=== PATIENT | female | born 1955 | race Caucasian/White ===

== ENCOUNTER → 2016-03-21 | Outpatient (CLI) | payer OTHER ==
[~2016-03-21] MED LIST: ASPI-983 PO; ATOR20TA49 PO; CETI10CA PO; FURO20TA4 PO; LISI-552 PO; LISI1TAB8 PO; METO-351 PO; POTA20TA8 PO
--- NOTE | 2016-03-23 07:47 | ECHOCARDIOGRAPHY REPORT ---
PROCEDURE PHYSICIAN: ROSEMARY GAYTAN DATE OF PROCEDURE: 03/21/2016 TWO DIMENSIONAL ECHOCARDIOGRAM REPORT PRIMARY PHYSICIAN: OTHER PHYSICIAN: REFERRING PHYSICIAN: ORDERING PHYSICIAN: ATTENDING PHYSICIAN: Dr. Reed Gaytan INDICATION FOR THE PROCEDURE: 1. Dyspnea on exertion. 2. Hypertension. MEASUREMENTS DERIVED VALUES LV DIAMETER (LAX) NORMALS NORMALS Diastolic (3.6-5.2) Eject. Fract. (60%+/-6%) Systolic (2.3-3.9) Diastolic Vol. % Shortening (0.22-0.42) Systolic Vol. Aortic Root IVS THICKNESS Diastolic (0.6-1.1) LVPW THICKNESS Diastolic (0.6-1.1) LA DIAMETER Systolic (2.1-3.7) FINDINGS: 1. Sinus rhythm. 2. Left atrial dimensions are normal. 3. Aortic root dimensions are normal. 4. Left ventricular systolic function is preserved. Left ventricular ejection fraction is 60 to 65%. No LVH is present. 5. There are no wall motion abnormalities. 6. Right heart dimensions and function is normal. 7. There is no evidence of pericardial effusion. 8. There is mild diastolic dysfunction. 9. IVC is normal with a diameter of 1.3 cm. VALVULAR STRUCTURE OF THE HEART: 1. Mild tricuspid regurgitation with mild mitral regurgitation. 2. The aortic valve is difficult to visualize in the parasternal short axis. However, there is no significant stenosis or regurgitation. RVSP is 6.79 mmHg. 3. The pulmonic valve is not well visualized. CONCLUSION: 1. LV and RV size and function is normal. 2. LV EF is 65%. 3. There is no significant valvular heart disease. 4. Normal PA pressure. Job ID: [id number] Dictated Date: 03/22/2016 14:09:16 [employer] Date: 03/23/2016 07:43:53 / tbowen
== END ==
LOC: CARD 14:44
PROVIDERS: ATTEND Internal Medicine Interventional Cardiology
DX: R06.09 Other forms of dyspnea (principal); I10 Essential (primary) hypertension
CPT/HCPCS: 93306

== ENCOUNTER → 2016-06-27 | Outpatient (CLI) | payer OTHER ==
--- NOTE | 2016-06-29 06:38 | ECHOCARDIOGRAPHY REPORT ---
DATE OF SERVICE: 06/27/2016 2D ECHOCARDIOGRAM DATE: 06/27/2016. ORDERING PHYSICIAN: Dr. Reed Gaytan. DIAGNOSIS: Dyspnea on exertion, hypertension. FINDINGS: 1. Sinus rhythm. 2. Left atrial dimensions are normal. Left atrial diameter is 3.7 cm. 3. Aortic root dimensions are normal. 4. Left ventricular systolic function is normal. Left ventricular ejection fraction is 65%. Mild diastolic and mild concentric LVH is present. Diastolic interventricular septal diameter is 1.1 cm. 5. There are no wall motion abnormalities. 6. Right heart dimensions are normal. Right ventricular systolic function is preserved. 7. There is no evidence of pericardial effusion. 8. Mild diastolic dysfunction is noted. 9. IVC diameter is 1.3 cm, and there is more than 50% collapse which may suggest under filling. VALVULAR STRUCTURE OF THE HEART: Mitral valve apparatus is normal. There is trace mitral regurgitation. There is trace tricuspid regurgitation. RVSP is 25 mmHg. There is mild aortic sclerosis noted with no evidence of stenosis or regurgitation. The pulmonic valve is within normal limits. CONCLUSION: 1. LV and RV size and function is normal. 2. LVEF is 65%. 3. There is no significant valvular heart disease. 4. Normal PA pressure. 5. IVC diameter is 1.3 cm with more than 50% collapse suggesting under filling. Job ID: [id number] DocumentID: [id number] Dictated Date: 06/28/2016 09:37:52 Senior Internal Auditor Date: 06/28/2016 15:26:48 Dictated By: ROSEMARY GAYTAN MD
== END ==
LOC: CARD 14:47
PROVIDERS: ATTEND Internal Medicine Interventional Cardiology
DX: I42.9 Cardiomyopathy, unspecified (principal); I10 Essential (primary) hypertension; R93.1 Abnormal findings on diagnostic imaging of heart and coronary circulation
CPT/HCPCS: 93306

== ENCOUNTER 2017-03-08 23:59 | Observation (INO) | payer BC ==
[~2017-03-08] VITALS: Ht 156.2 cm; Wt 80.8 kg
[2017-03-09 01:22] LABS: BASOPHILS # (AUTO) 0.1 10^3/uL (0.0-0.1); BASOPHILS % (AUTO) 0 % (0-10); EOSINOPHILS # (AUTO) 0.1 10^3/uL (0.0-0.3); EOSINOPHILS % (AUTO) 1 % (0-10); HEMATOCRIT 37 % (35-52); LYMPHOCYTES # (AUTO) 3.8 X 10^3 (1.0-4.0); LYMPHOCYTES % (AUTO) 24 % (12-44); MEAN CORPUSCULAR HEMOGLOBIN 28 PG (25-34); MEAN CORPUSCULAR HGB CONC 36 G/DL (32-36); MEAN CORPUSCULAR VOLUME 78 FL (80-99); MEAN PLATELET VOLUME 10.9 FL (7.4-10.4); MONOCYTES % (AUTO) 6 % (0-12); NEUTROPHILS # (AUTO) 11.1 X 10^3 (1.8-7.8); NEUTROPHILS % (AUTO) 69 % (42-75); PLATELET COUNT 308 10^3/uL (130-400); RED CELL DISTRIBUTION WIDTH 14.7 % (10.0-14.5); WHITE BLOOD COUNT 16.1 10^3/uL (4.3-11.0)
--- OUTSIDE RECORDS SUMMARY | 2017-03-09 01:27 | XMS REPORT | Continuity of Care Document ---
Author Author [facility] Address Unknown Phone Unavailable Allergies Active Description Code Type Severity Reaction Onset Reported/Identified Relationship to Patient Clinical Status Yes NKANo Known Allergies NKA Miscellaneous Allergy Unknown N/A 05/13/2005 Medications There is no data. 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 EXAM, ROUTINE 03/30/2013 JUAN CASILLAS DO V73.81 HPV SCREENING 03/30/2013 JUAN CASILLAS DO V76.10 BREAST CANCER SCREENING 03/30/2013 JUAN CASILLAS DO V76.2 CERVICAL CANCER SCREENING (PAP SMEAR) 03/30/2013 JUAN CASILLAS DO V76.51 COLON CANCER SCREENING 03/30/2013 NEAL BELLO APRN V65.42 COUNSELING - SMOKING CESSATION 03/30/2013 NEAL BELLO APRN V65.49 OTHER SPECIFIED COUNSELING 03/30/2013 NEAL BELLO APRN V72.31 PARACHUTE/COMBATANT DIVER OFFICER EXAM, ROUTINE 03/30/2013 NEAL BELLO APRN V73.81 HPV SCREENING 03/30/2013 NEAL BELLO APRN V76.10 BREAST CANCER SCREENING 03/30/2013 NEAL BELLO APRN V76.2 CERVICAL CANCER SCREENING (PAP SMEAR) 03/30/2013 NEAL BELLO APRN V76.51 COLON CANCER SCREENING 04/15/2015 MADELINE DIAZ DOTT D Ot Z01.818 04/15/2015 MORENCI MELE METCALF Ot Z12.11 04/19/2015 MORENCI MELE METCALF Ot Z12.11 ENCOUNTER FOR SCREENING FOR MALIGNANT NE 01/03/2016 Geovany LABOY MD Ot I10 ESSENTIAL (PRIMARY) HYPERTENSION 01/03/2016 Geovany LABOY MD Ot R06.09 OTHER FORMS OF DYSPNEA 01/06/2016 Geovany LABOY MD Ot I10 ESSENTIAL (PRIMARY) HYPERTENSION 01/06/2016 Geovany LABOY MD Ot R06.09 OTHER FORMS OF DYSPNEA 01/09/2016 Geovany LABOY MD, Ot I10 ESSENTIAL (PRIMARY) HYPERTENSION 01/09/2016 Geovany LABOY MD Ot R06.02 SHORTNESS OF BREATH 01/09/2016 Geovany LABOY MD Ot R06.09 OTHER FORMS OF DYSPNEA 01/09/2016 Geovany LABOY MD Ot R60.9 EDEMA, UNSPECIFIED 01/10/2016 Geovany LABOY MD Ot I25.10 ATHSCL HEART DISEASE OF [place] CORONARY 01/10/2016 Geovany LABOY MD Ot I50.21 ACUTE SYSTOLIC (CONGESTIVE) HEART FAILUR 01/10/2016 Geovany LABOY MD Ot Z72.0 TOBACCO USE 01/10/2016 Geovany LABOY MD Ot Z79.899 OTHER ASSISTED (CURRENT) DRUG THERAPY 01/17/2016 Geovany LABOY MD Ot I10 ESSENTIAL (PRIMARY) HYPERTENSION 01/17/2016 Geovany LABOY MD Ot R06.09 OTHER FORMS OF DYSPNEA 01/23/2016 Geovany LABOY MD Ot I10 ESSENTIAL (PRIMARY) HYPERTENSION 01/23/2016 Geovany LABOY MD Ot R06.02 SHORTNESS OF BREATH 01/23/2016 Geovany LABOY MD Ot R06.09 OTHER FORMS OF DYSPNEA 01/23/2016 Geovany LABOY MD Ot R60.9 EDEMA, UNSPECIFIED 02/09/2016 Geovany LABOY MD Ot I25.10 ATHSCL HEART DISEASE OF [place] CORONARY 02/09/2016 Geovany LABOY MD Ot I50.21 ACUTE SYSTOLIC (CONGESTIVE) HEART FAILUR 02/09/2016 Geovany LABOY MD Ot Z72.0 TOBACCO USE 02/09/2016 Geovany LABOY MD Ot Z79.899 OTHER ASSISTED (CURRENT) DRUG THERAPY 03/22/2016 Geovany LABOY MD Ot I10 ESSENTIAL (PRIMARY) HYPERTENSION 03/22/2016 Geovany LABOY MD Ot R06.09 OTHER FORMS OF DYSPNEA 04/03/2016 Geovany LABOY MD, Ot I10 ESSENTIAL (PRIMARY) HYPERTENSION 04/03/2016 Geovany LABOY MD Ot R06.09 OTHER FORMS OF DYSPNEA 06/25/2016 MAURIZIO MADRID APRN Ot V76.12 OTH SCREEN MAMMO-MALIGN NEOPLASM OF [place] 06/25/2016 Ot Z12.31 ENCNTR SCREEN MAMMOGRAM FOR MALIGNANT NE 06/25/2016 MELE DIAZ DO Ot Z01.818 ENCOUNTER FOR OTHER PREPROCEDURAL EXAMIN 06/25/2016 MELE DIAZ DO Ot Z12.11 ENCOUNTER FOR SCREENING FOR MALIGNANT NE 06/25/2016 Geovany LABOY MD Ot I10 ESSENTIAL (PRIMARY) HYPERTENSION 06/25/2016 Geovany LABOY MD Ot R06.09 OTHER FORMS OF DYSPNEA 06/25/2016 Geovany LABOY MD Ot I10 ESSENTIAL (PRIMARY) HYPERTENSION 06/25/2016 Geovany LABOY MD Ot R06.02 SHORTNESS OF BREATH 06/25/2016 Geovany LABOY MD Ot R06.09 OTHER FORMS OF DYSPNEA 06/25/2016 Geovany LABOY MD Ot R60.9 EDEMA, UNSPECIFIED 06/25/2016 Geovany LABOY MD Ot I10 ESSENTIAL (PRIMARY) HYPERTENSION 06/25/2016 Geovany LABOY MD Ot R06.09 OTHER FORMS OF DYSPNEA 07/10/2016 Geovany LABOY MD Ot I10 ESSENTIAL (PRIMARY) HYPERTENSION 07/10/2016 BENOIT WORTHY, Geovany OGDEN Ot I42.9 CARDIOMYOPATHY, UNSPECIFIED 07/10/2016 BENOIT WORTHY, Geovany OGDEN Ot R93.1 ABNORMAL FINDINGS ON DX IMAGING OF HEART Procedures Code [place] [address] ROUTINE VENIPUNCTURE 01/23/2012 77006 TSH 01/23/2012 58001 CBC 01/23/2012 59598 LIPID PANEL 01/23/2012 16964 CMP 01/23/2012 4508741 GFR CALC (RESULT ONLY) 01/23/2012 49330 ROUTINE VENIPUNCTURE 03/30/2013 86962 HEMOCCULT 03/30/2013 12910 MAMMOGRAM, SCREENING 03/30/2013 21490 TSH 03/30/2013 78808 PAP SMEAR 03/30/2013 Q0091 PAP SMEAR OBTAIN SMEAR 03/30/2013 62403 CBC 03/30/2013 8211421 GFR CALC (RESULT ONLY) 03/30/2013 37892 CMP 03/30/2013 55590 LIPID PANEL 03/30/2013 Results Test Result Range Automated blood complete blood count (hemogram) panel - 01/10/16 07:39 Blood leukocytes automated count (number/volume) 10.2 10*3/uL 4.3-11.0 Blood erythrocytes automated count (number/volume) 5.44 10*6/uL 4.35-5.85 Venous blood hemoglobin measurement (mass/volume) 14.7 g/dL 11.5-16.0 Blood hematocrit (volume fraction) 45 % 35-52 Automated erythrocyte mean corpuscular volume 82 [foz_us] 80-99 Automated erythrocyte mean corpuscular hemoglobin (mass per erythrocyte) 27 pg 25-34 Automated erythrocyte mean corpuscular hemoglobin concentration measurement ( mass/volume) 33 g/dL 32-36 Automated erythrocyte distribution width ratio 14.9 % 10.0-14.5 Automated blood platelet count (count/volume) 367 10*3/uL 130-400 Automated blood platelet mean volume measurement 10.7 [foz_us] 7.4-10.4 PT panel in platelet poor plasma by coagulation assay - 01/10/16 07:39 Prothrombin time (PT) in platelet poor plasma by coagulation assay 12.2 s 12.2-14.7 INR in platelet poor plasma or blood by coagulation assay 0.9 0.8-1.4 Comprehensive metabolic panel - 01/10/16 07:39 Serum or plasma sodium measurement (moles/volume) 136 mmol/L 135-145 Serum or plasma potassium measurement (moles/volume) 4.9 mmol/L 3.6-5.0 Serum or plasma chloride measurement (moles/volume) 104 mmol/L 98-107 Carbon dioxide 20 mmol/L 21-32 Serum or plasma anion gap determination (moles/volume) 12 mmol/L 5-14 Serum or plasma urea nitrogen measurement (mass/volume) 23 mg/dL 7-18 Serum or plasma creatinine measurement (mass/volume) 1.31 mg/dL 0.60-1.30 Serum or plasma urea nitrogen/creatinine mass ratio 18 NRG Serum or plasma creatinine measurement with calculation of estimated glomerular filtration rate 41 NRG Serum or plasma glucose measurement (mass/volume) 99 mg/dL 70-105 Serum or plasma calcium measurement (mass/volume) 9.7 mg/dL 8.5-10.1 Serum or plasma total bilirubin measurement (mass/volume) 0.4 mg/dL 0.1-1.0 Serum or plasma alkaline phosphatase measurement (enzymatic activity/volume) 114 U/L 40-136 Serum or plasma aspartate aminotransferase measurement (enzymatic activity/ volume) 17 U/L 5-34 Serum or plasma alanine aminotransferase measurement (enzymatic activity/volume ) 20 U/L 0-55 Serum or plasma protein measurement (mass/volume) 7.9 g/dL 6.4-8.2 Serum or plasma albumin measurement (mass/volume) 4.4 g/dL 3.2-4.5 Methicillin resistant Staphylococcus aureus (MRSA) screening culture - 07:39 Methicillin resistant Staphylococcus aureus (MRSA) screening culture NEG NRG Encounters ACCT No. Visit Date/Time Discharge Status Pt. Type Provider Facility Loc./Unit Complaint [id number] 02/17/2014 15:19:00 02/17/2014 23:59:59 CLS Outpatient NEAL BELLO APRN [id number] 03/30/2013 10:38:00 03/30/2013 23:59:59 CLS Outpatient JUAN CASILLAS DO [id number] 03/18/2013 15:45:00 03/18/2013 23:59:59 CLS Outpatient NEAL BELLO APRN [id number] 01/23/2012 08:22:00 01/23/2012 23:59:59 CLS Outpatient JUAN CASILLAS DO [id number] 01/22/2012 14:39:00 01/22/2012 23:59:59 CLS Outpatient ACE MAYNARDNEAL [id number] 01/04/2017 10:50:00 01/04/2017 23:59:59 CLS Preadmit Geovany LABOY MD [facility] CARD I42.9 CARDIOMYOPATHY [id number] 06/27/2016 14:47:00 06/27/2016 23:59:59 CLS Outpatient Geovany LABOY MD [facility] CARD I42.9,R93.1 [id number] 03/21/2016 14:44:00 03/21/2016 23:59:59 CLS Outpatient Geovany LABOY MD [facility] CARD GONSALVES,ESSENTIAL HYPERTENSION [id number] 01/10/2016 07:05:00 01/10/2016 15:00:00 DIS Outpatient Geovany LABOY MD [facility] CATH ABNORMAL ECHO,SOB,HTN, TOBACCO USE [id number] 01/06/2016 07:36:00 01/06/2016 23:59:59 CLS Outpatient Geovany LABOY MD [facility] LAB GONSALVES,EDEMA,HTN,SOB [id number] 01/02/2016 13:18:00 01/02/2016 23:59:59 CLS Outpatient Geovany LABOY MD [facility] CARD GONSALVES,ESSENTIAL HYPERTENTION, ELEVATED BNP [id number] 04/19/2015 07:23:00 04/19/2015 09:40:00 DIS Outpatient MELE DIAZ DO [facility] SDC SCREENING [id number] 04/15/2015 13:00:00 04/15/2015 23:59:59 CLS Outpatient MELE DIAZ DO [facility] PREOP SCREENING [id number] 04/10/2013 15:05:00 04/10/2013 23:59:59 CLS Outpatient MAURIZIO MADRID APRN [facility] RAD SCREENING [id number] 03/24/2015 13:09:00 Document Registration
[2017-03-09] MEDS ORDERED: NITROGLYCERIN 2% OINT 1 GM UNIT DOSE PACKET TOP ONE (01:30)
[2017-03-09 01:35] LABS: PROTHROMBIN TIME PATIENT 13.1 SEC (12.2-14.7)
[2017-03-09 01:39] LABS: ANISOCYTOSIS SLIGHT; BAND NEUTROPHILS 0 %; BASOPHILS % (MANUAL) 0 %; EOSINOPHILS % (MANUAL) 2 %; LYMPHOCYTES % (MANUAL) 22 %; MONOCYTES % (MANUAL) 5 %; NEUTROPHILS % (MANUAL) 66 %; REACTIVE LYMPHOCYTES 5 %
[2017-03-09 01:43] LABS: ALANINE AMINOTRANSFERASE 17 U/L (0-55); ALBUMIN 3.9 GM/DL (3.2-4.5); ALKALINE PHOSPHATASE 133 U/L (40-136); BILIRUBIN,TOTAL 0.5 MG/DL (0.1-1.0); BUN/CREATININE RATIO 13; CALCIUM 9.5 MG/DL (8.5-10.1); CARBON DIOXIDE 26 MMOL/L (21-32); CHLORIDE 104 MMOL/L (98-107); CREATININE SERUM 0.91 MG/DL (0.60-1.30); GFR ESTIMATED > 60; GLUCOSE 133 MG/DL (70-105); MAGNESIUM 1.8 MG/DL (1.8-2.4); POTASSIUM 3.3 MMOL/L (3.6-5.0); SODIUM 144 MMOL/L (135-145); TOTAL PROTEIN 7.5 GM/DL (6.4-8.2)
[2017-03-09] MEDS ORDERED: FUROSEMIDE 40 MG/4 ML INJ (LASIX) IVP ONE (02:15)
[2017-03-09] MEDS ORDERED: meTOproloL SUCCINATE 50 MG (TOPROL XL) TAB PO SCH (02:15)
[2017-03-09] MEDS ORDERED: ONDANSETRON 4 MG/2 ML (SDV) Z0FRAN IVP ONE (02:45)
--- OUTSIDE RECORDS SUMMARY | 2017-03-09 02:46 | XMS REPORT | Continuity of Care Document ---
Author Author [facility] [place] [facility] Address Unknown Phone Unavailable Allergies Active Description [...] SPECIFIED COUNSELING 03/30/2013 JUAN CASILLAS DO V72.31 BALANCER EXAM, ROUTINE 03/30/2013 JUAN CASILLAS DO V73.81 HPV SCREENING 03/30/2013 JUAN CASILLAS DO V76.10 BREAST CANCER SCREENING 03/30/2013 JUAN CASILLAS DO V76.2 CERVICAL CANCER SCREENING (PAP SMEAR) 03/30/2013 JUAN CASILLAS DO V76.51 COLON CANCER SCREENING 03/30/2013 NEAL BELLO APRN V65.42 COUNSELING - SMOKING CESSATION 03/30/2013 NEAL BELLO APRN V65.49 OTHER SPECIFIED COUNSELING 03/30/2013 NEAL BELLO APRN V72.31 BALANCER EXAM, ROUTINE 03/30/2013 NEAL BELLO APRN V73.81 HPV SCREENING 03/30/2013 NEAL BELLO APRN V76.10 BREAST CANCER SCREENING 03/30/2013 NEAL BELLO APRN V76.2 CERVICAL CANCER SCREENING (PAP SMEAR) 03/30/2013 NEAL BELLO APRN V76.51 COLON CANCER SCREENING 04/15/2015 MADELINE DIAZ DOTT D Ot Z01.818 04/15/2015 ALEXAND[place] MELE METCALF Ot Z12.11 04/19/2015 ALEXANDRI[place] MELE METCALF Ot Z12.11 ENCOUNTER FOR SCREENING [...] MD Ot I25.10 ATHSCL HEART DISEASE OF [place] CORONARY 01/10/2016 Geovany LABOY MD Ot I50.21 ACUTE SYSTOLIC (CONGESTIVE) HEART FAILUR 01/10/2016 Geovany LABOY MD Ot Z72.0 TOBACCO USE 01/10/2016 Geovany LABOY MD Ot Z79.899 OTHER PENITENTIARY (CURRENT) DRUG THERAPY 01/17/2016 Geovany LABOY MD [...] MD Ot I25.10 ATHSCL HEART DISEASE OF [place] CORONARY 02/09/2016 Geovany LABOY MD Ot I50.21 ACUTE SYSTOLIC (CONGESTIVE) HEART FAILUR 02/09/2016 Geovany LABOY MD Ot Z72.0 TOBACCO USE 02/09/2016 Geovany LABOY MD Ot Z79.899 OTHER PENITENTIARY (CURRENT) DRUG THERAPY 03/22/2016 Geovany LABOY MD [...] Procedures Code Description [place] [address] ROUTINE VENIPUNCTURE 01/23/2012 47767 TSH 01/23/2012 74185 CBC 01/23/2012 89873 LIPID PANEL 01/23/2012 68733 CMP 01/23/2012 0181644 GFR CALC (RESULT ONLY) 01/23/2012 04206 ROUTINE VENIPUNCTURE 03/30/2013 81516 HEMOCCULT 03/30/2013 85809 MAMMOGRAM, SCREENING 03/30/2013 92295 TSH 03/30/2013 08968 PAP SMEAR 03/30/2013 Q0091 PAP SMEAR OBTAIN SMEAR 03/30/2013 30826 CBC 03/30/2013 7296892 GFR CALC (RESULT ONLY) 03/30/2013 95178 CMP 03/30/2013 77451 LIPID PANEL 03/30/2013 Results Test Result Range [...] Staphylococcus aureus (MRSA) screening culture NEG NRG Complete blood count (CBC) with automated white blood cell (WBC) differential - 03/09/17 01:13 Blood leukocytes automated count (number/volume) 16.1 10*3/uL 4.3-11.0 Blood erythrocytes automated count (number/volume) 4.70 10*6/uL 4.35-5.85 Venous blood hemoglobin measurement (mass/volume) 13.0 g/dL 11.5-16.0 Blood hematocrit (volume fraction) 37 % 35-52 Automated erythrocyte mean corpuscular volume 78 [foz_us] 80-99 Automated erythrocyte mean corpuscular hemoglobin (mass per erythrocyte) 28 pg 25-34 Automated erythrocyte mean corpuscular hemoglobin concentration measurement ( mass/volume) 36 g/dL 32-36 Automated erythrocyte distribution width ratio 14.7 % 10.0-14.5 Automated blood platelet count (count/volume) 308 10*3/uL 130-400 Automated blood platelet mean volume measurement 10.9 [foz_us] 7.4-10.4 Automated blood neutrophils/100 leukocytes 69 % 42-75 Automated blood lymphocytes/100 leukocytes 24 % 12-44 Blood monocytes/100 leukocytes 6 % 0-12 Automated blood eosinophils/100 leukocytes 1 % 0-10 Automated blood basophils/100 leukocytes 0 % 0-10 Blood neutrophils automated count (number/volume) 11.1 10*3 1.8-7.8 Blood lymphocytes automated count (number/volume) 3.8 10*3 1.0-4.0 Blood monocytes automated count (number/volume) 1.0 10*3 0.0-1.0 Automated eosinophil count 0.1 10*3/uL 0.0-0.3 Automated blood basophil count (count/volume) 0.1 10*3/uL 0.0-0.1 Blood manual differential performed detection - 03/09/17 01:13 Blood monocytes/100 leukocytes 5 % NRG Manual blood segmented neutrophils/100 leukocytes 66 % NRG Blood band neutrophils/100 leukocytes 0 % NRG Manual blood lymphocytes/100 leukocytes 22 % NRG Manual eosinophils/100 leukocytes in nose 2 % NRG Manual blood basophils/100 leukocytes 0 % NRG Blood lymphocytes variant/100 leukocytes 5 % NRG Blood anisocytosis detection by light microscopy SLIGHT NRG PT panel in platelet poor plasma by coagulation assay - 03/09/17 01:13 Prothrombin time (PT) in platelet poor plasma by coagulation assay 13.1 s 12.2-14.7 INR in platelet poor plasma or blood by coagulation assay 1.0 0.8-1.4 Activated partial thromboplastin time (aPTT) in platelet poor plasma bycoagulation assay - 03/09/17 01:13 Activated partial thromboplastin time (aPTT) in platelet poor plasma bycoagulation assay 33 s 24-35 Comprehensive metabolic panel - 03/09/17 01:13 Serum or plasma sodium measurement (moles/volume) 144 mmol/L 135-145 Serum or plasma potassium measurement (moles/volume) 3.3 mmol/L 3.6-5.0 Serum or plasma chloride measurement (moles/volume) 104 mmol/L 98-107 Carbon dioxide 26 mmol/L 21-32 Serum or plasma anion gap determination (moles/volume) 14 mmol/L 5-14 Serum or plasma urea nitrogen measurement (mass/volume) 12 mg/dL 7-18 Serum or plasma creatinine measurement (mass/volume) 0.91 mg/dL 0.60-1.30 Serum or plasma urea nitrogen/creatinine mass ratio 13 NRG Serum or plasma creatinine measurement with calculation of estimated glomerular filtration rate > NRG Serum or plasma glucose measurement (mass/volume) 133 mg/dL 70-105 Serum or plasma calcium measurement (mass/volume) 9.5 mg/dL 8.5-10.1 Serum or plasma total bilirubin measurement (mass/volume) 0.5 mg/dL 0.1-1.0 Serum or plasma alkaline phosphatase measurement (enzymatic activity/volume) 133 U/L 40-136 Serum or plasma aspartate aminotransferase measurement (enzymatic activity/ volume) 13 U/L 5-34 Serum or plasma alanine aminotransferase measurement (enzymatic activity/volume ) 17 U/L 0-55 Serum or plasma protein measurement (mass/volume) 7.5 g/dL 6.4-8.2 Serum or plasma albumin measurement (mass/volume) 3.9 g/dL 3.2-4.5 Magnesium - 03/09/17 01:13 Magnesium 1.8 mg/dL 1.8-2.4 Serum or plasma lithium measurement (moles/volume) - 03/09/17 01:13 BNP level 1089.6 pg/mL <100.0 Serum or plasma troponin i.cardiac measurement (mass/volume) - 03/09/17 01:13 Serum or plasma troponin i.cardiac measurement (mass/volume) < ng/ mL <0.30 Encounters ACCT No. Visit Date/Time Discharge Status Pt. Type Provider Facility Loc./Unit Complaint [id number] 02/17/2014 15:19:00 02/17/2014 23:59:59 [facility] Outpatient NEAL BELLO APRN [id number] 03/30/2013 10:38:00 03/30/2013 23:59:59 CLS Outpatient SONJA METCALF JUAN Latoya [id number] 03/18/2013 15:45:00 03/18/2013 23:59:59 CLS Outpatient NEAL BELLO APRN [id number] 01/23/2012 08:22:00 01/23/2012 23:59:59 CLS Outpatient JUAN CASILLAS DO [id number] 01/22/2012 14:39:00 01/22/2012 23:59:59 CLS Outpatient NEAL BELLO APRN [id number] 01/04/2017 10:50:00 01/04/2017 23:59:59 CLS Preadmit Geovany LABOY MD [facility] CARD I42.9 CARDIOMYOPATHY [id number] 06/27/2016 14:47:00 06/27/2016 23:59:59 CLS Outpatient Geovany LABOY MD [facility] CARD I42.9,R93.1 [id number] 03/21/2016 14:44:00 03/21/2016 23:59:59 CLS Outpatient Geovany LABOY MD [facility] CARD GONSALVES,ESSENTIAL HYPERTENSION [id number] 01/10/2016 07:05:00 01/10/2016 15:00:00 DIS Outpatient Geovany LABOY MD [facility] CATH ABNORMAL ECHO,SOB,HTN, TOBACCO USE [id number] 01/06/2016 07:36:00 01/06/2016 23:59:59 CLS Outpatient Geovany LABOY MD [facility] LAB GONSALVES,EDEMA,HTN,SOB [id number] 01/02/2016 13:18:00 01/02/2016 23:59:59 CLS Outpatient Geovany LABOY MD [facility] CARD GONSALVES,ESSENTIAL HYPERTENTION, ELEVATED BNP [id number] 04/19/2015 07:23:00 04/19/2015 09:40:00 DIS Outpatient MELE DIAZ DO [facility] SDC SCREENING [id number] 04/15/2015 13:00:00 04/15/2015 23:59:59 CLS Outpatient MELE DIAZ DO [facility] PREOP SCREENING [id number] 04/10/2013 15:05:00 04/10/2013 23:59:59 CLS Outpatient MAURIZIO MADRID APRN [facility] RAD SCREENING [id number] 03/09/2017 01:25:00 Document Registration [id number] 03/24/2015 13:09:00 Document Registration
[2017-03-09 04:00] VITALS: BP 174/86
[2017-03-09] MEDS: NITROGLYCERIN 2% OINT 1 GM UNIT DOSE PACKET TOP SCH ×2 (06:00→12:17)
--- NOTE | 2017-03-09 06:37 | ED Cardiac General ---
History of Present Illness General Chief Complaint: Cardiac/General Problems Stated Complaint: CHF;HTN Nursing Triage Note: C/O HIGH BLOOD PRESSURE. Source: patient History of Present Illness Time seen by provider: 01:00 Initial Comments PT ARRIVES VIA POV FROM HOME STATES SHE BEGAN HAVING SOME SHORTNESS OF BREATH LAST PM FELT FAIRLY WELL TODAY AND WAS ABLE TO WORK ALL DAY WENT TO SLEEP, THEN WOKE UP AT 2200 AND WAS VERY SHORT OF BREATH--SHORTNESS OF BREATH IS BETTER NOW CHECKED HER BP AT THAT TIME AND IT WAS > 200 SYSTOLIC/ > 100 DIASTOLIC NO CHEST PAIN NO SWELLING IN LEGS/FEET OR PAIN IN CALVES NO PALPITATIONS NO HEADACHE NO VISION CHANGES NO PARESTHESIAS OR MOTOR DEFICITS NO DIZZINESS PT STATES SHE WAS SEEN BY DR. QUINONES AT HER WORK AT [employer], ON SATURDAY FOR A RUPTURED BLOOD VESSEL IN HER EYE--THOUGHT IT WAS DUE TO SINUS PRESSURE NO EYE PAIN NO VISION CHANGES BP AT THAT TIME WAS 130/70 PT DOES HAVE HISTORY OF HTN, HYPERLIPIDEMIA AND CHF SAW DR. LABOY IN JANUARY FOR ROUTINE EXAM, AND WAS FINE AT THAT TIME. NO CHANGES IN MEDICATIONS. TO HAVE ROUTINE ECHOCARDIOGRAM IN MAY, AND NEXT APPOINTMENT IN JULY PCP: NONE TONGER: DR. LABOY Allergies and Home Medications Allergies Coded Allergies: GEOFFANo Known Allergies (Verified Allergy, Unknown, 05/13/05) Home Medications Aspirin 81 Mg Tablet.dr, 81 MG PO DAILY, #90 Prescribed by: Geovany LABOY on 01/10/16 1335 Atorvastatin Calcium 20 Mg Tablet, 20 MG PO DAILY, #90 Ref 3 Prescribed by: Geovany LABOY on 01/10/16 1335 Cetirizine HCl 10 Mg Capsule, 10 MG PO HS, (Reported) Lisinopril/Hydrochlorothiazide 1 Each Tablet, 1 EACH PO DAILY, (Reported) Metoprolol Succinate 25 Mg Tab.er.24h, 25 MG PO DAILY, #90 Ref 3 Prescribed by: Geovany LABOY on 01/10/16 1335 Review of Systems Constitutional: no symptoms reported, No chills, No diaphoresis, No dizziness, No fever EENTM: See HPI, No Blurred Vision Respiratory: See HPI, Orthopnea, Shortness of Air, SOA With Exertion, SOA at Rest, Denies Wheezing Cardiovascular: No Symptoms Reported, Denies Chest Pain, Denies Edema, Denies Irregular Heart Rate, Denies Lightheadedness, Denies Palpitations, Denies Syncope Gastrointestinal: No Symptoms Reported Genitourinary: No Symptoms Reported Musculoskeletal: no symptoms reported Skin: no symptoms reported Psychiatric/Neurological: No Symptoms Reported, Denies Headache, Denies Numbness, Denies Paresthesia, Denies Seizure, Denies Tingling, Denies Weakness Endocrine: No Symptoms Reported Hematologic/Lymphatic: No Symptoms Reported Past Hkcdgrl-Qsznrk-[place] Hx Patient Social History Alcohol Use: Denies Use Recreational Drug Use: No Smoking Status: Current Everyday Smoker (1 PPD) Type Used: Cigarettes (1 PPD) Former Smoker, Quit: Jan 03, 2016 Recent Foreign Travel: No Contact w/Someone Who Travel: No Recent Infectious Disease Expo: No Recent Hopitalizations: No Immunizations Up To Date Tetanus Booster (TDap): Unknown Date of Influenza Vaccine: Dec 02, 2016 Seasonal Allergies Seasonal Allergies: Yes Surgeries History of Surgeries: Yes Surgeries: Section, Gallbladder Respiratory History of Respiratory Disorde: No Cardiovascular History of Cardiac Disorders: Yes (CHF) Cardiac Disorders: High Cholesterol, Hypertension Neurological History of Neurological Disord: No 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 Genitourinary History of Genitourinary Disor: No Gastrointestinal History of Gastrointestinal Di: Yes (S/P AMADEO) Gastrointestinal Disorders: Ulcer, Gall Bladder Disease Musculoskeletal History of Musculoskeletal Dis: No Endocrine History of Endocrine Disorders: No HEENT History of HEENT Disorders: No Cancer History of Cancer: No Psychosocial History of Psychiatric Problem: No Integumentary History of Skin or Integumenta: No Blood Transfusions History of Blood Disorders: No Adverse Reaction to a Blood Tr: No Family Medical History Family Medial History: Cardiovascular disease G8 SISTER Cervical cancer G8 SISTER Colon cancer 19 FATHER Peripheral vascular disease G8 SISTER Physical Exam Vital Signs Vital Sign - Last 12Hours 03/09/17 00:45 Temp 98.7 Pulse 98 Resp 16 B/P (MAP) 199/107 (137) Pulse Ox 95 O2 Delivery Room Air Capillary Refill : Less Than 3 Seconds General Appearance: No Apparent Distress HEENT: PERRL/EOMI Neck: Full Range of Motion, Normal Inspection, Non Tender, Supple, No Carotid Bruit, No JVD Respiratory: Normal Breath Sounds, No Accessory Muscle Use, No Respiratory Distress, Decreased Breath Sounds (IN BASES) Cardiovascular: Regular Rate, Rhythm, No Edema, No JVD, No Murmur, Normal Peripheral Pulses Gastrointestinal: Normal Bowel Sounds, No Organomegaly, No Pulsatile Mass, Non Tender, Soft Extremity: Normal Capillary Refill, Normal Inspection, Normal Range of Motion, Non Tender, No Calf Tenderness, No Pedal Edema Neurologic/Psychiatric: Alert, Oriented x3, No Motor/Sensory Deficits, Normal 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, 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 Norm as Tested Skin: Normal Color, Warm/Dry Progress/Results/Core Measures Results/Orders Lab Results Laboratory Tests Test 03/09/17 01:13 Range/Units White Blood Count 16.1 H 4.3-11.0 10^3/uL Red Blood Count 4.70 4.35-5.85 10^6/uL Hemoglobin 13.0 11.5-16.0 G/DL Hematocrit 37 35-52 % Mean Corpuscular Volume 78 L 80-99 FL Mean Corpuscular Hemoglobin 28 25-34 PG Mean Corpuscular Hemoglobin Concent 36 32-36 G/DL Red Cell Distribution Width 14.7 H 10.0-14.5 % Platelet Count 308 130-400 10^3/uL Mean Platelet Volume 10.9 H 7.4-10.4 FL Neutrophils (%) (Auto) 69 42-75 % Lymphocytes (%) (Auto) 24 12-44 % Monocytes (%) (Auto) 6 0-12 % Eosinophils (%) (Auto) 1 0-10 % Basophils (%) (Auto) 0 0-10 % Neutrophils # (Auto) 11.1 H 1.8-7.8 X 10^3 Lymphocytes # (Auto) 3.8 1.0-4.0 X 10^3 Monocytes # (Auto) 1.0 0.0-1.0 X 10^3 Eosinophils # (Auto) 0.1 0.0-0.3 10^3/uL Basophils # (Auto) 0.1 0.0-0.1 10^3/uL Neutrophils % (Manual) 66 % Lymphocytes % (Manual) 22 % Monocytes % (Manual) 5 % Eosinophils % (Manual) 2 % Basophils % (Manual) 0 % Band Neutrophils 0 % Reactive Lymphocytes 5 % Anisocytosis SLIGHT Prothrombin Time 13.1 12.2-14.7 SEC INR Comment 1.0 0.8-1.4 Activated Partial Thromboplast Time 33 24-35 SEC Sodium Level 144 135-145 MMOL/L Potassium Level 3.3 L 3.6-5.0 MMOL/L Chloride Level 104 98-107 MMOL/L Carbon Dioxide Level 26 21-32 MMOL/L Anion Gap 14 5-14 MMOL/L Blood Urea Nitrogen 12 7-18 MG/DL Creatinine 0.91 0.60-1.30 MG/DL Estimat Glomerular Filtration Rate > 60 BUN/Creatinine Ratio 13 Glucose Level 133 H 70-105 MG/DL Calcium Level 9.5 8.5-10.1 MG/DL Magnesium Level 1.8 1.8-2.4 MG/DL Total Bilirubin 0.5 0.1-1.0 MG/DL Aspartate Amino Transf (AST/SGOT) 13 5-34 U/L Alanine Aminotransferase (ALT/SGPT) 17 0-55 U/L Alkaline Phosphatase 133 40-136 U/L Troponin I < 0.30 <0.30 NG/ML B-Type Natriuretic Peptide 1089.6 H <100.0 PG/ML Total Protein 7.5 6.4-8.2 GM/DL Albumin 3.9 3.2-4.5 GM/DL My Orders Orders - DESIRE,SALMA K DO Saline Lock/Iv-Start (03/09/17 01:04) Ekg Tracing (03/09/17 01:04) Monitor-Rhythm Ecg Trace Only (03/09/17 01:04) BNP (03/09/17 01:04) Cbc With Automated Diff (03/09/17 01:04) Comprehensive Metabolic Panel (03/09/17 01:04) Magnesium (03/09/17 01:04) Protime With Inr (03/09/17 01:04) Partial Thromboplastin Time (03/09/17 01:04) Troponin I (03/09/17 01:04) Chest 1 View, Ap/Pa Only (03/09/17 01:04) Manual Differential (03/09/17 01:13) Nitroglycerin Ointment (Nitrobid Ointme (03/09/17 01:30) Furosemide Injection (Lasix Injection) (03/09/17 02:15) Medications Given in ED Current Medications Medications Dose Ordered Sig/Naomi Route Start Time Stop Time Status Last Admin Dose Admin Nitroglycerin 1 inch ONCE ONCE TOP 03/09/17 01:30 03/09/17 01:32 DC 03/09/17 01:37 1 INCH Vital Signs/I&O Vital Sign - Last 12Hours 03/09/17 00:45 Temp 98.7 Pulse 98 Resp 16 B/P (MAP) 199/107 (137) Pulse Ox 95 O2 Delivery Room Air Blood Pressure Mean: 115 Progress Note : Progress Note UNEVENTFUL ER STAY BP DOWN WITH MEDICATIONS ECG Initial ECG Impression Time: 01:23 Initial ECG Rate: 86 Initial ECG Rhythm: Normal Sinus Initial ECG Impression: Nonspecific Changes Initial ECG Comparisson: No Previous ECG Available Diagnostic Imaging Comments CXR--CHF, PENDING RADIOLOGIST REVIEW Reviewed: Reviewed by Me Departure Communication (Admissions) Progress Notes 0205--SPOKE WITH DR. PIERCE, ACCEPTS PT FOR ADMIT Impression Impression: Primary Impression: CHF (congestive heart failure) Additional Impression: HTN (hypertension) Disposition: ADMITTED INPATIENT Condition: Improved Admissions Decision to Admit Reason: Admit from ER (General) Decision to Admit/Date: Mar 09, 2017 Time/Decision to Admit Time: 02:05 Departure-Patient Inst. Referrals: NO,LOCAL PHYSICIAN (PCP) Primary Care Physician SALMA PHIPPS DO Mar 09, 2017 06:37
[2017-03-09 08:01] LABS: BASOPHILS % (AUTO) 0 % (0-10); EOSINOPHILS # (AUTO) 0.1 10^3/uL (0.0-0.3); EOSINOPHILS % (AUTO) 1 % (0-10); HEMATOCRIT 39 % (35-52); HEMOGLOBIN 13.5 G/DL (11.5-16.0); LYMPHOCYTES # (AUTO) 2.6 X 10^3 (1.0-4.0); LYMPHOCYTES % (AUTO) 18 % (12-44); MEAN CORPUSCULAR HEMOGLOBIN 27 PG (25-34); MEAN CORPUSCULAR HGB CONC 35 G/DL (32-36); MEAN CORPUSCULAR VOLUME 79 FL (80-99); MONOCYTES # (AUTO) 0.9 X 10^3 (0.0-1.0); MONOCYTES % (AUTO) 6 % (0-12); NEUTROPHILS % (AUTO) 75 % (42-75); PLATELET COUNT 300 10^3/uL (130-400); RED BLOOD COUNT 4.92 10^6/uL (4.35-5.85); RED CELL DISTRIBUTION WIDTH 14.9 % (10.0-14.5); WHITE BLOOD COUNT 14.7 10^3/uL (4.3-11.0)
[2017-03-09 08:25] LABS: ALANINE AMINOTRANSFERASE 18 U/L (0-55); ALBUMIN 4.1 GM/DL (3.2-4.5); ALKALINE PHOSPHATASE 142 U/L (40-136); BILIRUBIN,TOTAL 0.8 MG/DL (0.1-1.0); BUN/CREATININE RATIO 15; CALCIUM 9.5 MG/DL (8.5-10.1); CARBON DIOXIDE 27 MMOL/L (21-32); CHLORIDE 98 MMOL/L (98-107); CREATININE SERUM 0.88 MG/DL (0.60-1.30); GFR ESTIMATED > 60; GLUCOSE 126 MG/DL (70-105); POTASSIUM 3.1 MMOL/L (3.6-5.0); SODIUM 142 MMOL/L (135-145); TOTAL PROTEIN 7.9 GM/DL (6.4-8.2)
[2017-03-09] MEDS: FUROSEMIDE 40 MG/4 ML INJ (LASIX) IV SCH ×2 (08:32→14:00)
[2017-03-09 08:41] VITALS: BP 159/76
--- NOTE | 2017-03-09 09:26 | Diagnostic Imaging Report ---
INDICATION: Hypertension. TECHNIQUE: Single view chest 1:32 AM. CORRELATION STUDY: 01/10/2016 FINDINGS: Heart size enlarged, appears increased. Additionally, there is presence of pulmonary vascular congestion and perihilar edema. Prominent interstitial markings compatible with interstitial edema. Superimposed infiltrate and/or edema about the lung bases also appears to be present. Overlying monitor leads. IMPRESSION: 1. Findings consistent with congestive heart failure along with interstitial edema. Superimposed edema versus infiltrate lung bases suspect. Dictated by: Dictated on workstation # [id number]
[2017-03-09] MEDS ORDERED: lisINopril 20 MG (ZESTRIL) TAB PO SCH (09:45)
[2017-03-09] MEDS ORDERED: CATHETER FLUSH 10 ML SYR IV PRN (10:00)
--- NOTE | 2017-03-09 11:24 | Short Stay Summary ---
History of Present Illness History of Present Illness Reason for visit/HPI 61-year-old lady with history of congestive heart failure, chronic compensated left ventricular systolic dysfunction, was in her usual state of health until last night, was having some shortness of breath which became more significant. Patient came into the emergency room for evaluation. Was in pulmonary edema, given IV Lasix and reported improvement. She was severely hypertensive and blood pressure improve after she calmed down. Denied any similar episodes recently. Denied any chest pain. No palpitation. No syncope or near syncopal episode. On my evaluation patient was feeling better, breathing better, able to lay down flat in her bed. Responded to IV Lasix well. I monitored her for 2 hours. Repeated echocardiogram evaluation which showed left ventricular systolic function to be in the lower normal limits. Discussed with her the management plan and advised her on follow-up as an outpatient. Date of Admission Mar 09, 2017 at 02:05 Date of Discharge March 09, 2017 at 1130 a.m. Time Seen by Provider: 09:00 Attending Physician Quinn Lock MD Admitting Physician Sara,Local Physician Consult Allergies and Home Medications Allergies Coded Allergies: Phong Known Allergies (Verified Allergy, Unknown, 05/13/05) Home Medications Aspirin 81 Mg Tablet.dr, 81 MG PO DAILY, #90 Prescribed by: Geovany GAYTAN on 01/10/16 1335 Atorvastatin Calcium 20 Mg Tablet, 20 MG PO DAILY, #90 Ref 3 Prescribed by: Geovany GAYTAN on 01/10/16 1335 Cetirizine HCl 10 Mg Capsule, 10 MG PO HS, (Reported) Lisinopril/Hydrochlorothiazide 1 Each Tablet, 1 EACH PO DAILY, (Reported) Metoprolol Succinate 25 Mg Tab.er.24h, 25 MG PO DAILY, #90 Ref 3 Prescribed by: Geovany GAYTAN on 01/10/16 1335 Past Tkkwilj-Tcggqf-Rwhdmz Hx Patient Social History Marrital Status: Employed/Student: employed Alcohol Use: Denies Use Recreational Drug Use: No Smoking Status: Current Everyday Smoker (1 PPD) Former Smoker, Quit: Jan 03, 2016 Type Used: Cigarettes (1 PPD) Physical Abuse Screen: No Sexual Abuse: No Recent Foreign Travel: No Contact w/other who traveled: No Recent Hopitalizations: No Recent Infectious Disease Expo: No Immunizations Up To Date Tetanus Booster (TDap): Unknown Date of Influenza Vaccine: Dec 02, 2016 Seasonal Allergies Seasonal Allergies: Yes Surgeries Yes Section, Gallbladder Respiratory No Cardiovascular Yes (CHF) High Cholesterol, Hypertension Neurological No 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 Genitourinary No Gastrointestinal Yes (S/P AMADEO) Ulcer, Gall Bladder Disease Musculoskeletal No Endocrine History of Endocrine Disorders: No HEENT History of HEENT Disorders: No Cancer No Psychosocial History of Psychiatric Problem: No Integumentary History of Skin or Integumenta: No Blood Transfusions History of Blood Disorders: No Adverse Reaction to a Blood Tr: No Family Medical History Family Hx: Cardiovascular disease G8 SISTER Cervical cancer G8 SISTER Colon cancer 19 FATHER Peripheral vascular disease G8 SISTER Constitutional: see HPI, malaise EENTM: see HPI, no symptoms reported Respiratory: see HPI, dyspnea on exertion, orthopnea, short of breath Cardiovascular: see HPI, No chest pain, edema, No Hx of Intervention, No palpitations, No syncope, No vascular heart diseas, No other Gastrointestinal: no symptoms reported, see HPI Genitourinary: no symptoms reported, see HPI Musculoskeletal: no symptoms reported, see HPI Skin: no symptoms reported, see HPI Psychiatric/Neurological: No Symptoms Reported, See HPI Physical Exam Vital Signs Vital Sign - Last 12Hours 03/09/17 00:45 Temp 98.7 Pulse 98 Resp 16 B/P (MAP) 199/107 (137) Pulse Ox 95 O2 Delivery Room Air Capillary Refill : Less Than 3 Seconds General Appearance: No Apparent Distress, WD/WN Eyes: Bilateral Eye Normal Inspection, Bilateral Eye PERRL, Bilateral Eye EOMI HEENT: PERRL/EOMI, TMs Normal, Normal ENT Inspection, Pharynx Normal Neck: Full Range of Motion, Normal Inspection, Non Tender, Supple, Carotid Bruit Respiratory: Chest Non Tender, Normal Breath Sounds, No Accessory Muscle Use, No Respiratory Distress, Crackles Cardiovascular: Regular Rate, Rhythm, No Edema, No Gallop, No JVD, No Murmur, Normal Peripheral Pulses Gastrointestinal: Normal Bowel Sounds, No Organomegaly, No Pulsatile Mass, Non Tender, Soft Back: Normal Inspection, No CVA Tenderness, No Vertebral Tenderness Extremity: Normal Capillary Refill, Normal Inspection, Normal Range of Motion, Non Tender, No Calf Tenderness, No Pedal Edema Neurologic/Psychiatric: Alert, Oriented x3, No Motor/Sensory Deficits, Normal Mood/Affect Skin: Normal Color, Warm/Dry Lymphatic: No Adenopathy Clinical Quality Measures DVT/VTE Risk/Contraindication: Risk Factor Score Per Nursin RFS Level Per Nursing on Admit: 4+=Very High Short Stay Diagnosis Discharge Diagnosis-Short Stay Admission Diagnosis: Labile hypertension Congestive heart failure, acute on chronic left ventricular systolic dysfunction, nonischemic cardiomyopathy Hyperlipidemia Shortness of breath Final Discharge Diagnosis: Labile hypertension Congestive heart failure, acute on chronic left ventricular systolic dysfunction, nonischemic cardiomyopathy Hyperlipidemia Shortness of breath Conclusion Labs Laboratory Tests 03/09/17 01:13: White Blood Count 16.1H, Red Blood Count 4.70, Hemoglobin 13.0, Hematocrit 37, Mean Corpuscular Volume 78L, Mean Corpuscular Hemoglobin 28, Mean Corpuscular Hemoglobin Concent 36, Red Cell Distribution Width 14.7H, Platelet Count 308, Mean Platelet Volume 10.9H, Neutrophils (%) (Auto) 69, Lymphocytes (%) (Auto) 24 , Monocytes (%) (Auto) 6, Eosinophils (%) (Auto) 1, Basophils (%) (Auto) 0, Neutrophils # (Auto) 11.1H, Lymphocytes # (Auto) 3.8, Monocytes # (Auto) 1.0, Eosinophils # (Auto) 0.1, Basophils # (Auto) 0.1, Neutrophils % (Manual) 66, Lymphocytes % (Manual) 22, Monocytes % (Manual) 5, Eosinophils % (Manual) 2, Basophils % (Manual) 0, Band Neutrophils 0, Reactive Lymphocytes 5, Anisocytosis SLIGHT, Prothrombin Time 13.1, INR Comment 1.0, Activated Partial Thromboplast Time 33, Sodium Level 144, Potassium Level 3.3L, Chloride Level 104 , Carbon Dioxide Level 26, Anion Gap 14, Blood Urea Nitrogen 12, Creatinine 0.91 , Estimat Glomerular Filtration Rate > 60, BUN/Creatinine Ratio 13, Glucose Level 133H, Calcium Level 9.5, Magnesium Level 1.8, Total Bilirubin 0.5, Aspartate Amino Transf (AST/SGOT) 13, Alanine Aminotransferase (ALT/SGPT) 17, Alkaline Phosphatase 133, Troponin I < 0.30, B-Type Natriuretic Peptide 1089.6H , Total Protein 7.5, Albumin 3.9 03/09/17 07:52: White Blood Count 14.7H, Red Blood Count 4.92, Hemoglobin 13.5, Hematocrit 39, Mean Corpuscular Volume 79L, Mean Corpuscular Hemoglobin 27, Mean Corpuscular Hemoglobin Concent 35, Red Cell Distribution Width 14.9H, Platelet Count 300, Mean Platelet Volume 11.0H, Neutrophils (%) (Auto) 75, Lymphocytes (%) (Auto) 18 , Monocytes (%) (Auto) 6, Eosinophils (%) (Auto) 1, Basophils (%) (Auto) 0, Neutrophils # (Auto) 11.0H, Lymphocytes # (Auto) 2.6, Monocytes # (Auto) 0.9, Eosinophils # (Auto) 0.1, Basophils # (Auto) 0.0, Sodium Level 142, Potassium Level 3.1L, Chloride Level 98, Carbon Dioxide Level 27, Anion Gap 17H, Blood Urea Nitrogen 13, Creatinine 0.88, Estimat Glomerular Filtration Rate > 60, BUN/ Creatinine Ratio 15, Glucose Level 126H, Calcium Level 9.5, Total Bilirubin 0.8 , Aspartate Amino Transf (AST/SGOT) 11, Alanine Aminotransferase (ALT/SGPT) 18, Alkaline Phosphatase 142H, Troponin I < 0.30, Total Protein 7.9, Albumin 4.1 Conclusion/Plan Congestive heart failure, acute left ventricular systolic and diastolic dysfunction, probably secondary to labile hypertension with malignant hypertension. Better at this time, blood pressure is better controlled. Restarted on medication. Given Lasix and responded appropriately. I will continue on diuretics as an outpatient. Malignant hypertension, labile blood pressure, better controlled at this time. Continue on home medication and add lasix and monitor as an outpatient Coronary artery disease, mild per cardiac catheterization by Dr. Gaytan Continue to monitor Hyperlipidemia, monitor lipids. Shortness of breath secondary to pulmonary edema, reported improvement. QUINN LOCK MD Mar 09, 2017 11:24
[2017-03-09] MEDS ORDERED: FURO-125 PO (11:42)
[2017-03-09] MEDS ORDERED: POTA10TA PO (11:42)
[2017-03-09] MEDS ORDERED: KCL 20 MEQ TAB (K-DUR) PO NR (11:45)
[2017-03-09] MEDS ORDERED: FUROSEMIDE 40 MG/4 ML INJ (LASIX) IVP NR (11:45)
[2017-03-09 12:00] VITALS: BP 135/56
[2017-03-09] MEDS ORDERED: NS IV 500 ML 500 ML ONE (12:06)
[2017-03-09] MEDS: POTASSIUM CL 10MEQ/50ML IVPB 50 ML IV SCH ×2 (12:16→13:34)
[2017-03-09] MEDS ORDERED: CATHETER FLUSH 10 ML SYR IV SCH (14:00)
[2017-03-09 15:25] VITALS: BP 135/56
[2017-03-10] MEDS ORDERED: meTOproloL SUCCINATE 50 MG (TOPROL XL) TAB PO SCH (09:00)
== END 2017-03-09 14:48 | disposition home or self-care (01) ==
LOC: EDUNIT# 23:59 → ER 03-09 00:03 → ICU 03-09 02:05 → UNDOADMOB 03-09 02:05 → ICU 03-09 02:55 → UNDODISOB 03-09 15:30
PROVIDERS: ADMIT Internal Medicine Cardiovascular Disease; ATTEND Internal Medicine Cardiovascular Disease
DX: I11.0 Hypertensive heart disease with heart failure (principal); I50.23 Acute on chronic systolic (congestive) heart failure; I42.9 Cardiomyopathy, unspecified; E78.5 Hyperlipidemia, unspecified; I25.10 Atherosclerotic heart disease of native coronary artery without angina pectoris; Z87.891 Personal history of nicotine dependence; Z79.82 Long term (current) use of aspirin; Z79.899 Other long term (current) drug therapy
CPT/HCPCS: 36415; 71045; 80053; 83735; 83880; 84484; 85007; 85025; 85027; 85610; 85730; 93005; 93041; 93306; 96374; 96375

== ENCOUNTER → 2017-04-10 | Outpatient (CLI) | payer BC ==
[~2017-04-10] MED LIST changes: +FURO-125 PO; +POTA10TA PO
--- NOTE | 2017-04-10 09:49 | Diagnostic Imaging Report ---
EXAMINATION: Ultrasound abdominal Doppler. INDICATION: Hypertension Spectral and color flow imaging of the aorta and the renal arteries was performed. There are no prior studies available for comparison. Both kidneys were identified. Right kidney measures 9.7 x 4.5 x 5.5 cm while the left kidney measures 9.4 x 4.7 x 4.9 CM. There is no evidence for a solid renal mass or for a hydronephrosis of either kidney. There is a benign appearing 1.9 x 2.1 x 2.4 CM cyst along the superior pole of the left kidney. Renal cortices are normal in thickness and echogenicity. Both renal arteries were visualized. The renal artery/aortic ratios are within normal limits and there is no evidence for a hemodynamically significant stenosis of either renal artery. The bladder was only partially filled and consequently difficult to assess. There is no obvious bladder abnormality evident. Neither ureteral jet was identified. IMPRESSION: 1. There is no evidence for a solid renal mass or for an acute abnormality of either kidney. 2. There is no sign of renal artery stenosis. 3. There is no obvious bladder abnormality noted but the ureteral jets were not visualized. Dictated by: Dictated on workstation # [id number]
== END ==
LOC: RAD 07:36
PROVIDERS: ATTEND Internal Medicine Interventional Cardiology
DX: I42.9 Cardiomyopathy, unspecified (principal); I25.10 Atherosclerotic heart disease of native coronary artery without angina pectoris; E78.5 Hyperlipidemia, unspecified; I10 Essential (primary) hypertension; Z72.0 Tobacco use
CPT/HCPCS: 93975

== ENCOUNTER → 2018-04-16 | Outpatient (CLI) | payer BC ==
[2018-04-16 13:01] LABS: BASOPHILS % (AUTO) 0 % (0-10); EOSINOPHILS # (AUTO) 0.1 10^3/uL (0.0-0.3); EOSINOPHILS % (AUTO) 1 % (0-10); HEMATOCRIT 43 % (35-52); HEMOGLOBIN 14.3 G/DL (11.5-16.0); LYMPHOCYTES # (AUTO) 3.4 X 10^3 (1.0-4.0); LYMPHOCYTES % (AUTO) 29 % (12-44); MEAN CORPUSCULAR HEMOGLOBIN 28 PG (25-34); MEAN CORPUSCULAR HGB CONC 33 G/DL (32-36); MEAN CORPUSCULAR VOLUME 85 FL (80-99); MEAN PLATELET VOLUME 10.6 FL (7.4-10.4); MONOCYTES # (AUTO) 0.6 X 10^3 (0.0-1.0); MONOCYTES % (AUTO) 5 % (0-12); NEUTROPHILS # (AUTO) 7.5 X 10^3 (1.8-7.8); NEUTROPHILS % (AUTO) 65 % (42-75); PLATELET COUNT 307 10^3/uL (130-400); RED CELL DISTRIBUTION WIDTH 15.6 % (10.0-14.5); WHITE BLOOD COUNT 11.6 10^3/uL (4.3-11.0)
[2018-04-16 13:04] LABS: ABSOLUTE RETIC # 53 10e9/L (24-90); RETICULOCYTE % 1.03 % (0.50-2.40)
[2018-04-16 13:14] LABS: INR 0.9 (0.8-1.4); PROTHROMBIN TIME PATIENT 12.5 SEC (12.2-14.7)
[2018-04-16 13:54] LABS: ANISOCYTOSIS SLIGHT; BAND NEUTROPHILS 0 %; BASOPHILS % (MANUAL) 0 %; EOSINOPHILS % (MANUAL) 0 %; LYMPHOCYTES % (MANUAL) 27 %; MONOCYTES % (MANUAL) 3 %; NEUTROPHILS % (MANUAL) 69 %; REACTIVE LYMPHOCYTES 1 %
[2018-04-17 06:36] LABS: HEPATITIS C ANTIBODY C Non-Reactive (Non-Reactive)
== END ==
LOC: LAB 12:42
PROVIDERS: ATTEND Nurse Practitioner Family
DX: R74.8 Abnormal levels of other serum enzymes (principal); D72.829 Elevated white blood cell count, unspecified; R23.3 Spontaneous ecchymoses
CPT/HCPCS: 36415; 80074; 85007; 85027; 85045; 85610

== ENCOUNTER 2019-09-11 19:24 | Emergency (ER) | payer BC ==
[~2019-09-11] VITALS: Ht 154.9 cm; Wt 76.4 kg
[~2019-09-11 19:24] MED LIST changes: +LISI1TAB25 PO; -LISI1TAB8 PO
[2019-09-11 20:08] LABS: BILIRUBIN,URINE NEGATIVE (NEGATIVE); CLARITY,URINE CLEAR; COLOR,URINE YELLOW; GLUCOSE, URINE (UA) NEGATIVE (NEGATIVE); KETONES,URINE TRACE (NEGATIVE); LEUKOCYTE ESTERASE ,URINE NEGATIVE (NEGATIVE); NITRITE,URINE NEGATIVE (NEGATIVE); PROTEIN,URINE 1+ (NEGATIVE)
[2019-09-11 20:14] LABS: BACTERIA,URINE TRACE /HPF; WBC,URINE 0-2 /HPF
[2019-09-11] MEDS ORDERED: ONDANSETRON 4 MG/2 ML (SDV) Z0FRAN IVP ONE (20:15)
[2019-09-11] MEDS ORDERED: fentaNYL INJECTION 100 MCG/2 ML AMP IVP ONE (20:15)
[2019-09-11 20:16] LABS: BASOPHILS % (AUTO) 0 % (0-10); EOSINOPHILS # (AUTO) 0.1 10^3/uL (0.0-0.3); EOSINOPHILS % (AUTO) 1 % (0-10); HEMATOCRIT 45 % (35-52); LYMPHOCYTES # (AUTO) 3.9 X 10^3 (1.0-4.0); LYMPHOCYTES % (AUTO) 20 % (12-44); MEAN CORPUSCULAR HEMOGLOBIN 28 PG (25-34); MEAN CORPUSCULAR HGB CONC 36 G/DL (32-36); MEAN CORPUSCULAR VOLUME 79 FL (80-99); MEAN PLATELET VOLUME 11.1 FL (7.4-10.4); MONOCYTES # (AUTO) 1.5 X 10^3 (0.0-1.0); MONOCYTES % (AUTO) 8 % (0-12); NEUTROPHILS # (AUTO) 14.2 X 10^3 (1.8-7.8); NEUTROPHILS % (AUTO) 72 % (42-75); PLATELET COUNT 370 10^3/uL (130-400); RED CELL DISTRIBUTION WIDTH 15.7 % (10.0-14.5); WHITE BLOOD COUNT 19.7 10^3/uL (4.3-11.0)
[2019-09-11 20:19] LABS: ALBUMIN 4.5 GM/DL (3.2-4.5); POTASSIUM 3.2 MMOL/L (3.6-5.0)
[2019-09-11 20:20] LABS: CALCIUM 9.6 MG/DL (8.5-10.1)
[2019-09-11 20:21] LABS: TOTAL PROTEIN 8.1 GM/DL (6.4-8.2)
[2019-09-11 20:23] LABS: BILIRUBIN,TOTAL 0.8 MG/DL (0.1-1.0)
[2019-09-11 20:25] LABS: CREATININE SERUM 1.39 MG/DL (0.60-1.30)
[2019-09-11 20:48] LABS: EOSINOPHILS % (MANUAL) 1 %; LYMPHOCYTES % (MANUAL) 18 %; MONOCYTES % (MANUAL) 9 %; NEUTROPHILS % (MANUAL) 72 %
[2019-09-11] MEDS ORDERED: NS IV 1000 ML 1,000 ML IV SCH (20:52)
[2019-09-11] MEDS ORDERED: LACTATED RINGERS 1,000 ML IV ONE (20:53)
--- NOTE | 2019-09-11 21:04 | Diagnostic Imaging Report ---
PROCEDURE: CT urinary tract, rule out kidney stone. TECHNIQUE: Multiple contiguous axial images were obtained through the abdomen and pelvis without the use of intravenous contrast. Auto Exposure Controls were utilized during the CT exam to meet ALARA standards for radiation dose reduction. INDICATION: Right flank pain. FINDINGS: The lung bases are clear. The heart size is normal. The liver is normal in size and without focal lesions. Gallbladder is surgically absent. There is no biliary ductal dilatation. The spleen is normal. There is some focal inflammatory changes about the 2nd portion of the duodenal pancreatic head. The aorta demonstrates moderate atherosclerotic plaque. There is a cyst in the left kidney. Bowel gas pattern is otherwise nonspecific. There is no free air. There is no ascites. Bladder is normal. There is no pelvic mass or adenopathy. There is some diverticular disease without evidence of diverticulitis. IMPRESSION: 1. Nonspecific inflammatory process about the 2nd portion of the duodenum. This may reflect duodenitis or possibly focal pancreatitis in the pancreatic head. Recommend clinical correlation and, if warranted, follow up with endoscopy. 2. Diverticular disease without evidence for diverticulitis. 3. Left renal cyst. Dictated by: Dictated on workstation # [id number]
--- NOTE | 2019-09-11 21:22 | ED Abdominal Pain ---
General Chief Complaint: Abdominal/GI Problems Stated Complaint: KIDNEY PAIN Nursing Triage Note: TO ED VIA POV AND AMBULATORY TO ROOM 1 WITH C/O RIGHT SIDE ABD/FLANK PAIN. STARTED ON CIPRO 500MG FOR UTI ON 09/07 BY URGENT CARE. PAIN HAD SUBSIDED, BUT RETURNED TODAY. DENIES PAIN WITH VOIDING. Sepsis Screen: No Definite Risk Source of Information: Patient Exam Limitations: No Limitations History of Present Illness Date Seen by Provider: Sep 11, 2019 Time Seen by Provider: 19:45 Initial Comments This 63-year-old woman presents to the emergency room with complaints of right flank and right sided abdominal pain for 5 days. She went to urgent care and was started on Cipro for UTI. She denies dysuria. She is afebrile. Symptoms have not improved so she presented to the emergency room. She has had nausea and vomiting associated with this pain as well. Allergies and Home Medications Allergies Coded Allergies: GEOFFANo Known Allergies (Verified Allergy, Unknown, 05/13/05) Home Medications Aspirin 81 Mg Tablet., 81 MG PO DAILY Prescribed by: Geovany LABOY on 01/10/16 133 Atorvastatin Calcium 20 Mg Tablet, 20 MG PO DAILY Prescribed by: Geovany LABOY on 01/10/16 133 Cetirizine HCl 10 Mg Capsule, 10 MG PO HS, (Reported) Furosemide 20 Mg Tablet, 20 MG PO DAILY PRN for DYSPNEA Prescribed by: NELDA PIERCE on 03/09/17 114 Hydrocodone/Acetaminophen 1 Each Tablet, 1 EACH PO Q4H PRN for PAIN-MODERATE (5- 7) Prescribed by: VIKY HENRY on 09/11/192151 Lisinopril/Hydrochlorothiazide 1 Each Tablet, 1 EACH PO DAILY, (Reported) Metoprolol Succinate 25 Mg Tab.er.24h, 25 MG PO DAILY Prescribed by: Geovany LABOY on 01/10/16 1335 Metronidazole 500 Mg Tablet, 500 MG PO BID Prescribed by: VIKY HENRY on 09/11/192151 Pantoprazole Sodium 40 Mg Tablet.dr, 40 MG PO DAILY Prescribed by: VIKY HENRY on 09/11/192151 Potassium Chloride 10 Meq Tablet.er, 10 MEQ PO DAILY PRN for with lasix Prescribed by: NELDA PIERCE on 03/09/17 1142 Sucralfate 1 Gm Tablet, 1 GM PO QID Crush or dissolve to make a slurry with 5-10 ML water. Take 30 min before eating/drinking at meals and before bed. Prescribed by: VIKY HENRY on 09/11/192151 Patient Home Medication List Home Medication List Reviewed: Yes Review of Systems Review of Systems Constitutional: no symptoms reported EENTM: No Symptoms Reported Respiratory: No Symptoms Reported Cardiovascular: No Symptoms Reported Gastrointestinal: See HPI Genitourinary: See HPI Musculoskeletal: no symptoms reported Skin: no symptoms reported Psychiatric/Neurological: No Symptoms Reported Endocrine: No Symptoms Reported Hematologic/Lymphatic: No Symptoms Reported Past Blfwigc-Bxmpwm-Swnqxt Hx Past Med/Social Hx: Reviewed Nursing Past Med/Soc Hx Patient Social History Alcohol Use: Denies Use Recreational Drug Use: No Smoking Status: Current Everyday Smoker Type Used: Cigarettes Former Smoker, Quit: Jan 03, 2016 Recent Foreign Travel: No Contact w/Someone Who Travel: No Recent Infectious Disease Expo: No Recent Hopitalizations: No Physical Abuse: No Sexual Abuse: No Mistreated: No Fear: No Immunizations Up To Date Tetanus Booster (TDap): Unknown Date of Influenza Vaccine: Dec 02, 2016 Seasonal Allergies Seasonal Allergies: Yes Past Medical History Surgeries: Yes Section, Gallbladder Respiratory: No Cardiac: Yes (CHF) High Cholesterol, Hypertension 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 Genitourinary: No Gastrointestinal: Yes (S/P AMADEO) Ulcer, Gall Bladder Disease Musculoskeletal: No Endocrine: No HEENT: No Cancer: No Psychosocial: No Integumentary: No Blood Disorders: No Adverse Reaction/Blood Tranf: No Family Medical History Cardiovascular disease G8 SISTER Cervical cancer G8 SISTER Colon cancer 19 FATHER Peripheral vascular disease G8 SISTER Physical Exam Vital Signs Vital Signs - First Documented 09/11/19 09/11/19 19:35 22:16 Temp 36.3 Pulse 74 Resp 20 B/P (MAP) 171/72 (105) Pulse Ox 98 O2 Delivery Room Air Capillary Refill : Less Than 3 Seconds Height/Weight/BMI Height: 5'1.50" Weight: 178lbs. 2.0oz. 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, no motor/sensory deficits, alert, normal mood/affect, oriented x 3 Skin: normal color, warm/dry Progress/Results/Core Measures Results/Orders Lab Results Laboratory Tests Test 09/11/19 19:45 Range/Units White Blood Count 19.7 H 4.3-11.0 10^3/uL Red Blood Count 5.73 4.35-5.85 10^6/uL Hemoglobin 16.0 11.5-16.0 G/DL Hematocrit 45 35-52 % Mean Corpuscular Volume 79 L 80-99 FL Mean Corpuscular Hemoglobin 28 25-34 PG Mean Corpuscular Hemoglobin Concent 36 32-36 G/DL Red Cell Distribution Width 15.7 H 10.0-14.5 % Platelet Count 370 130-400 10^3/uL Mean Platelet Volume 11.1 H 7.4-10.4 FL Neutrophils (%) (Auto) 72 42-75 % Lymphocytes (%) (Auto) 20 12-44 % Monocytes (%) (Auto) 8 0-12 % Eosinophils (%) (Auto) 1 0-10 % Basophils (%) (Auto) 0 0-10 % Neutrophils # (Auto) 14.2 H 1.8-7.8 X 10^3 Lymphocytes # (Auto) 3.9 1.0-4.0 X 10^3 Monocytes # (Auto) 1.5 H 0.0-1.0 X 10^3 Eosinophils # (Auto) 0.1 0.0-0.3 10^3/uL Basophils # (Auto) 0.0 0.0-0.1 10^3/uL Neutrophils % (Manual) 72 % Lymphocytes % (Manual) 18 % Monocytes % (Manual) 9 % Eosinophils % (Manual) 1 % Urine Color YELLOW Urine Clarity CLEAR Urine pH 6.0 5-9 Urine Specific Palmer >=1.030 1.016-1.022 Urine Protein 1+ H NEGATIVE Urine Glucose (UA) NEGATIVE NEGATIVE Urine Ketones TRACE H NEGATIVE Urine Nitrite NEGATIVE NEGATIVE Urine Bilirubin NEGATIVE NEGATIVE Urine Urobilinogen 0.2 < = 1.0 MG/DL Urine Leukocyte Esterase NEGATIVE NEGATIVE Urine RBC (Auto) 1+ H NEGATIVE Urine RBC NONE /HPF Urine WBC 0-2 /HPF Urine Squamous Epithelial Cells 5-10 /HPF Urine Crystals NONE /LPF Urine Bacteria TRACE /HPF Urine Casts NONE /LPF Urine Mucus MODERATE H /LPF Urine Culture Indicated NO Sodium Level 131 L 135-145 MMOL/L Potassium Level 3.2 L 3.6-5.0 MMOL/L Chloride Level 95 L 98-107 MMOL/L Carbon Dioxide Level 21 21-32 MMOL/L Anion Gap 15 H 5-14 MMOL/L Blood Urea Nitrogen 18 7-18 MG/DL Creatinine 1.39 H 0.60-1.30 MG/DL Estimat Glomerular Filtration Rate 38 BUN/Creatinine Ratio 13 Glucose Level 113 H 70-105 MG/DL Calcium Level 9.6 8.5-10.1 MG/DL Corrected Calcium 9.2 8.5-10.1 MG/DL Total Bilirubin 0.8 0.1-1.0 MG/DL Aspartate Amino Transf (AST/SGOT) 17 5-34 U/L Alanine Aminotransferase (ALT/SGPT) 16 0-55 U/L Alkaline Phosphatase 127 40-136 U/L C-Reactive Protein High Sensitivity 1.28 H 0.00-0.50 MG/DL Total Protein 8.1 6.4-8.2 GM/DL Albumin 4.5 3.2-4.5 GM/DL Lipase 29 8-78 U/L My Orders Orders - VIKY PRITCHETT MD Hs C Reactive Protein (09/11/19 20:00) Lipase (09/11/19 20:00) Ct Abd/Pelvis Wo(Kidney Stone) (09/11/19 20:02) Ondansetron Injection (Zofran Injectio (09/11/19 20:15) Fentanyl Injection (Sublimaze Injection (09/11/19 20:15) Ns Iv 1000 Ml (Sodium Chloride 0.9%) (09/11/19 20:52) Lactated Ringers (Lr 1000 Ml Iv Solution (09/11/19 20:53) Famotidine Injection (Pepcid Injection) (09/11/19 21:30) Pantoprazole Injection (Protonix Injecti (09/11/19 21:30) Hydrocodone/Apap 5/325 Tablet (Lortab 5 (09/11/19 21:45) Medications Given in ED Current Medications Medications Dose Ordered Sig/Naomi Route Start Time Stop Time Status Last Admin Dose Admin Acetaminophen/ Hydrocodone Bitart 1 tab ONCE ONCE PO 09/11/19 21:45 09/11/19 21:46 DC 09/11/19 22:12 1 TAB Famotidine 20 mg ONCE ONCE IVP 09/11/19 21:30 09/11/19 21:31 DC 09/11/19 22:11 20 MG Fentanyl Citrate 50 mcg ONCE ONCE IVP 09/11/19 20:15 09/11/19 20:16 DC 09/11/19 20:39 50 MCG Lactated Ringer's 1,000 ml @ 0 mls/hr Q0M ONCE IV 09/11/19 20:53 09/11/19 20:55 DC 09/11/19 21:06 999 MLS/HR Ondansetron HCl 8 mg ONCE ONCE IVP 09/11/19 20:15 09/11/19 20:16 DC 09/11/19 20:38 8 MG Pantoprazole 40 mg ONCE ONCE IV 09/11/19 21:30 09/11/19 21:31 DC 09/11/19 22:11 40 MG Vital Signs/I&O 09/11/19 09/11/19 19:35 22:16 Temp 36.3 36.3 Pulse 74 64 Resp 20 18 B/P (MAP) 171/72 (105) 162/67 (105) Pulse Ox 98 O2 Delivery Room Air Room Air 09/12/19 00:00 Intake Total 1000 ml Balance 1000 ml Blood Pressure Mean: 105 Progress Progress Note : Progress Note Symptoms were treated with fentanyl and Zofran. She was given a liter of LR. Risks and benefits of CT discussed with the patient. She elects to proceed with CT scan. There were inflammatory changes noted around the duodenum suggestive of duodenitis. I discussed the case with Dr. Diaz. He suggest Protonix, Carafate, and endoscopy. She was treated with Pepcid and Protonix by IV route. Flagyl was added for more robust antibiotic coverage for bowel source. No evidence of kidney stone was identified. Patient was given a hydrocodone before departure to better treat her pain through the night. See discharge instructions. Departure Impression Primary Impression: Duodenitis Additional Impressions: Right upper quadrant pain Nausea & vomiting Qualified Codes: R11.2 - Nausea with vomiting, unspecified Disposition: 01 HOME, SELF-CARE Condition: Improved Departure-Patient Inst. Decision time for Depature: 21:40 Referrals: MELE DIAZ,LOCAL PHYSICIAN (PCP) Primary Care Physician Patient Instructions: Duodenal Ulcer (DC), Severe Abdominal Pain Add. Discharge Instructions: Observe a noncarbonated clear liquid diet for at least 24 hours. Then gradually advance your diet as tolerated. Include some liquids that have potassium which might include Gatorade or Pedialyte. Avoid use of NSAID medications such as ibuprofen or naproxen. For mild pain use Tylenol (acetaminophen). For more severe pain you may use hydrocodone as prescribed. Use Zofran (ondansetron) as prescribed for nausea and vomiting. Start Protonix and Carafate as prescribed. Follow-up with Dr. Diaz in 2-3 weeks with anticipated endoscopy in about a month. In the meantime, return to care if you have worsening symptoms despite his treatments. All discharge instructions reviewed with patient and/or family. Voiced understanding. Scripts Sucralfate (Carafate) 1 Gm Tablet 1 GM PO QID, #120 TAB Crush or dissolve to make a slurry with 5-10 ML water. Take 30 min before eating/drinking at meals and before bed. Prov: VIKY PRITCHETT MD 09/11/19 Metronidazole (Flagyl) 500 Mg Tablet 500 MG PO BID, #14 TAB Prov: VIKY PRITCHETT MD 09/11/19 Hydrocodone/Acetaminophen (Hydrocodone-Acetamin 5-325 mg) 1 Each Tablet 1 EACH PO Q4H PRN for PAIN-MODERATE (5-7), #10 TAB Prov: VIKY PRITCHETT MD 09/11/19 Pantoprazole Sodium (Protonix) 40 Mg Tablet. 40 MG PO DAILY, #30 TAB Prov: VIKY PRITCHETT MD 09/11/19 Copy Copies To 1: MELE DIAZ JOSHUA T MD Sep 11, 2019 21:22
[2019-09-11] MEDS ORDERED: PANTOPRAZOLE 40 MG (PROTONIX) VIAL IV ONE (21:30)
[2019-09-11] MEDS ORDERED: FAMOTIDINE 20MG/2ML IV (PEPCID) IVP ONE (21:30)
[2019-09-11] MEDS ORDERED: HYDROcodone/APAP 5 MG/325 MG (LORTAB) TAB PO ONE (21:45)
[2019-09-11] MEDS ORDERED: PANT40TA2 PO (21:52)
[2019-09-11] MEDS ORDERED: METR500T PO (21:52)
[2019-09-11] MEDS ORDERED: SUCR1TAB36 PO (21:52)
[2019-09-11] MEDS ORDERED: HYDR-83 PO (21:52)
[2019-09-11 22:16] VITALS: BP 162/67
== END 2019-09-11 22:17 | disposition home or self-care (01) ==
LOC: EDUNIT# 19:24 → ER 19:26
DX: K29.80 Duodenitis without bleeding (principal); I11.0 Hypertensive heart disease with heart failure; I50.9 Heart failure, unspecified; E78.00 Pure hypercholesterolemia, unspecified; F17.210 Nicotine dependence, cigarettes, uncomplicated; Z82.49 Family history of ischemic heart disease and other diseases of the circulatory system; Z79.82 Long term (current) use of aspirin; Z80.49 Family history of malignant neoplasm of other genital organs
CPT/HCPCS: 36415; 74176; 80053; 81000; 83690; 85007; 85027; 86141

== ENCOUNTER → 2020-07-22 | Outpatient (CLI) | payer BC ==
[~2020-07-22] MED LIST changes: +ACHD5005 PO; +ASPI-1238 PO; -ASPI-983 PO; -LISI-552 PO; -LISI1TAB25 PO; +LISI1TAB46 PO; +LISI20TA26 PO; +METR500T PO; +PANT40TA2 PO; +SUCR1TAB36 PO
== END ==
LOC: CARD 14:18
PROVIDERS: ATTEND Internal Medicine Cardiovascular Disease
DX: I11.9 Hypertensive heart disease without heart failure (principal); I08.0 Rheumatic disorders of both mitral and aortic valves; I25.10 Atherosclerotic heart disease of native coronary artery without angina pectoris
CPT/HCPCS: 93306

== ENCOUNTER 2020-07-29 06:11 | Outpatient (CLI) | payer BC ==
[~2020-07-29] VITALS: Ht 154.9 cm; Wt 79.1 kg
[2020-08-02] MEDS ORDERED: ATOR20TA66 PO (12:17)
[2020-08-02] MEDS ORDERED: AMLO-251 PO (12:17)
[2020-08-02] MEDS ORDERED: LISI40TA9 PO (12:17)
[2020-08-02] MEDS ORDERED: PANT20TA18 PO (12:17)
[2020-08-02] MEDS ORDERED: METO50TA7 PO (12:17)
== END 2020-08-02 12:21 | disposition home or self-care (01) ==
LOC: PREOP 06:11
PROVIDERS: ATTEND Specialist
DX: Z01.818 Encounter for other preprocedural examination (principal)

== ENCOUNTER 2020-08-05 10:32 | Day surgery (SDC) | payer BC ==
[~2020-08-05] VITALS: Ht 154.9 cm; Wt 79.1 kg
[~2020-08-05 10:32] MED LIST changes: +AMLO-251 PO; +ATOR20TA66 PO; +LISI40TA9 PO; +METO50TA7 PO; +PANT20TA18 PO
[2020-08-05] MEDS ORDERED: MIDAZOLAM 2 MG/2 ML (VERSED) VIAL ONE (10:37)
[2020-08-05] MEDS ORDERED: POVIDONE (BETADINE) OPHTH SOLN 5% 30 ML OP ONE (10:45)
[2020-08-05] MEDS ORDERED: TIMOLOL MALEATE 0.5% 5 ML (TIMOPTIC) BTL OU PRN (10:45)
[2020-08-05] MEDS ORDERED: MOXIFLOXACIN OPHTH SOLN 5 MG/ML 0.3 ML SYRINGE OP ONE (10:45)
[2020-08-05] MEDS ORDERED: LIDOCAINE PF 1% 2 ML VIAL IR PRN (10:45)
[2020-08-05] MEDS: TETRACAINE 0.5% OPHTH SOLN 4 ML BTL (SINGLE DOSE ONLY) OU PRN ×4 (10:56→11:14)
[2020-08-05] MEDS: PHENYLEPHRINE 10% OPHTH (NEO-SYN) 5 ML BTL OU SCH ×3 (11:03→11:14)
[2020-08-05] MEDS: TROPICAMIDE 1% OPH SOLN (MYDRIACYL) 15 ML BTL OP SCH ×3 (11:03→11:14)
[2020-08-05 11:05] VITALS: BP 150/68
--- NOTE | 2020-08-05 11:30 | Ophthalmologist Pre-Op Note ---
Pre-Operative Progress Note H&P Reviewed The H&P was reviewed, patient examined and no changes noted. Date H&P Reviewed: Aug 05, 2020 Time H&P Reviewed: 11:30 Pre-Op Dx Cataract, Right Eye LARRY ROBERTS MD Aug 05, 2020 11:30
[2020-08-05 11:51] VITALS: BP 143/79
--- NOTE | 2020-08-05 11:54 | Ophthalmology Operative Report ---
Cataract removal/placement IOL PREOPERATIVE DIAGNOSIS: Cataract Right Eye POSTOPERATIVE DIAGNOSIS: Cataract Right Eye PROCEDURE: Cataract removal and placement of posterior chamber implant, right eye SURGEON: Cesar Roberts ANESTHESIA: Topical with sedation COMPLICATIONS: None ESTIMATED BLOOD LOSS: Minimal DESCRIPTION OF PROCEDURE: After proper informed consent was obtained, the patient, a 64 female, was taken to the Operating Room and the right eye was anesthetized with tetracaine. The right eye was then prepped and draped in the usual manner. A wire lid speculum was placed. A paracentesis was made at the left hand position. Preservative free lidocaine was injected into the anterior chamber followed by viscoelastic. A clear corneal incision was made in the temporal position. A capsulorrhexis was preformed and the central nuclear and cortical material were removed. The posterior capsule was polished and Balaji 16.0 AU00T0 IOL was placed into the capsular bag. The residual viscoelastic was aspirated and balanced saline solution was injected into the anterior chamber. Moxifloxacin was injected into the anterior chamber. The wound was checked and found to be water tight. The patient tolerated the procedure well without complications. CESAR ROBERTS MD Aug 05, 2020 11:54
[2020-08-05] MEDS ORDERED: acetaZOLAMIDE ER 500 MG CAP (DIAMOX SEQUELS) PO ONE (12:00)
--- NOTE | 2020-08-05 13:54 | Anesthesia-General Post-Op ---
MAC Patient Condition Mental Status/LOC: Same as Preop Cardiovascular: Satisfactory Nausea/Vomiting: Absent Respiratory: Satisfactory Pain: Controlled Complications: Absent Post Op Complications Complications None Follow Up Care/Instructions Patient Instructions None needed. Anesthesiology Discharge Order Discharge Order Patient is doing well, no complaints, stable vital signs, no apparent adverse anesthesia problems. No complications reported per nursing. FRANTZ DONOHUE CRNA Aug 05, 2020 13:53
== END 2020-08-05 12:05 | disposition home or self-care (01) ==
LOC: SDC 10:32
PROVIDERS: ATTEND Specialist
DX: H25.11 Age-related nuclear cataract, right eye (principal); I11.0 Hypertensive heart disease with heart failure; I50.9 Heart failure, unspecified; K21.9 Gastro-esophageal reflux disease without esophagitis; Z79.899 Other long term (current) drug therapy
CPT/HCPCS: 66984; V2632

== ENCOUNTER 2020-08-19 09:44 | Day surgery (SDC) | payer BC ==
[~2020-08-19] VITALS: Ht 154 cm; Wt 79.1 kg
[2020-08-19] MEDS ORDERED: LIDOCAINE PF 1% 2 ML VIAL IR PRN (09:45)
[2020-08-19] MEDS ORDERED: POVIDONE (BETADINE) OPHTH SOLN 5% 30 ML OP ONE (09:45)
[2020-08-19] MEDS ORDERED: TIMOLOL MALEATE 0.5% 5 ML (TIMOPTIC) BTL OU PRN (09:45)
[2020-08-19] MEDS ORDERED: MOXIFLOXACIN OPHTH SOLN 5 MG/ML 0.3 ML SYRINGE OP ONE (09:45)
[2020-08-19] MEDS: TETRACAINE 0.5% OPHTH SOLN 4 ML BTL (SINGLE DOSE ONLY) OU PRN ×4 (09:56→10:13)
[2020-08-19 09:58] VITALS: BP 159/69
[2020-08-19] MEDS: TROPICAMIDE 1% OPH SOLN (MYDRIACYL) 15 ML BTL OP SCH ×3 (10:03→10:13)
[2020-08-19] MEDS: PHENYLEPHRINE 10% OPHTH (NEO-SYN) 5 ML BTL OU SCH ×3 (10:03→10:13)
[2020-08-19] MEDS ORDERED: MIDAZOLAM 2 MG/2 ML (VERSED) VIAL ONE (10:38)
--- NOTE | 2020-08-19 10:48 | Ophthalmologist Pre-Op Note ---
Pre-Operative Progress Note H&P Reviewed The H&P was reviewed, patient examined and no changes noted. Date H&P Reviewed: Aug 19, 2020 Time H&P Reviewed: 10:48 Pre-Op Dx Cataract, Left Eye LARRY ROBERTS MD Aug 19, 2020 10:48
[2020-08-19] MEDS ORDERED: acetaZOLAMIDE ER 500 MG CAP (DIAMOX SEQUELS) PO ONE (11:00)
--- NOTE | 2020-08-19 11:10 | Ophthalmology Operative Report ---
Cataract removal/placement IOL PREOPERATIVE DIAGNOSIS: Cataract Left Eye POSTOPERATIVE DIAGNOSIS: Cataract Left Eye PROCEDURE: Cataract removal and placement of posterior chamber implant, left eye SURGEON: Cesar Roberts ANESTHESIA: Topical with sedation COMPLICATIONS: None ESTIMATED BLOOD LOSS: Minimal DESCRIPTION OF PROCEDURE: After proper informed consent was obtained, the patient, a 64 female, was taken to the Operating Room and the left eye was anesthetized with tetracaine. The left eye was then prepped and draped in the usual manner. A wire lid speculum was placed. A paracentesis was made at the left hand position. Preservative free lidocaine was injected into the anterior chamber followed by viscoelastic. A clear corneal incision was made in the temporal position. A capsulorrhexis was preformed and the central nuclear and cortical material were removed. The posterior capsule was polished and an Balaji 16.0 AU00T0 was placed into the capsular bag. The residual viscoelastic was aspirated and balanced saline solution was injected into the anterior chamber. Moxifloxacin was injected into the anterior chamber. The wound was checked and found to be water tight. The patient tolerated the procedure well without complications. CESAR ROBERTS MD Aug 19, 2020 11:10
[2020-08-19 11:20] VITALS: BP 138/65
--- NOTE | 2020-08-19 15:59 | Anesthesia-General Post-Op ---
MAC Patient Condition Mental Status/LOC: Same as Preop Cardiovascular: Satisfactory Nausea/Vomiting: Absent Respiratory: Satisfactory Pain: Controlled Complications: Absent Post Op Complications Complications None Follow Up Care/Instructions Patient Instructions None needed. Anesthesiology Discharge Order Discharge Order Patient was seen after the procedure and she was doing well, no complaints, stable vital signs, no apparent adverse anesthesia problems. CHICHI GARCIA DO Aug 19, 2020 15:59
== END 2020-08-19 11:20 | disposition home or self-care (01) ==
LOC: SDC 09:44
PROVIDERS: ATTEND Specialist
DX: H25.12 Age-related nuclear cataract, left eye (principal); E78.5 Hyperlipidemia, unspecified; I50.1 Left ventricular failure, unspecified; I11.0 Hypertensive heart disease with heart failure; K21.9 Gastro-esophageal reflux disease without esophagitis; Z80.9 Family history of malignant neoplasm, unspecified
CPT/HCPCS: 66984; V2632

== ENCOUNTER → 2021-06-07 | Outpatient (CLI) | payer BC ==
[~2021-06-07] MED LIST changes: +POTA-169 PO; -POTA20TA8 PO
--- NOTE | 2021-06-07 11:24 | Diagnostic Imaging Report ---
PROCEDURE: US Renal Bilateral. TECHNIQUE: Multiple real-time grayscale images were obtained over the kidneys in various projections bilaterally. INDICATION: Chronic kidney disease stage III. Right kidney measures 9.1 x 5.1 x 5.3 cm, left kidney measures 10.3 x 4.5 x 5.3 cm. There is a mixed echogenicity lesion in the upper pole of the right kidney which is indeterminate. This measures 1.0 x 0.9 x 1.3 cm. Left kidney contains a simple appearing cyst in the upper pole measuring 3.3 x 3.2 x 3.0 cm. Both kidneys show normal cortical thickness and echogenicity. No calculi are seen. There is no hydronephrosis. Images of the bladder unremarkable. IMPRESSION: 1. Simple cyst left kidney. 2. Indeterminate right renal lesion in the upper pole. CT with and without IV contrast would be useful for further characterization if patient is clinically able to receive contrast. Dictated by: Dictated on workstation # [id number]
== END ==
LOC: RAD 10:30
PROVIDERS: ATTEND Internal Medicine Nephrology
DX: I12.9 Hypertensive chronic kidney disease with stage 1 through stage 4 chronic kidney disease, or unspecified chronic kidney disease (principal); N18.31 Chronic kidney disease, stage 3a; N28.1 Cyst of kidney, acquired; R80.8 Other proteinuria; E66.9 Obesity, unspecified
CPT/HCPCS: 76770

== ENCOUNTER → 2021-07-04 | Outpatient (CLI) | payer BC ==
[2021-07-04 08:20] LABS: CREATININE SERUM 1.06 MG/DL (0.60-1.30)
--- NOTE | 2021-07-04 11:13 | Diagnostic Imaging Report ---
EXAMINATION: CT abdomen and pelvis with and without intravenous contrast. TECHNIQUE: Precontrast acquisitions were acquired through the abdomen and pelvis. Multiple contiguous axial images were obtained through the abdomen and pelvis after the administration of intravenous contrast. All CT scans use one or more of the following dose optimizing techniques: automated exposure control, MA and/or KvP adjustment based on patient size and exam type or iterative reconstruction. HISTORY: Renal lesion evaluation COMPARISON: 06/07/2021 FINDINGS: Lung bases: Bibasilar dependent atelectasis. Solid organs: The liver is normal without focal lesion. The gallbladder is surgically absent. There is no biliary ductal dilation. Pancreas is normal. Spleen is normal. Adrenal glands are normal. There is no visualized renal calculus, hydronephrosis, or suspicious enhancing renal lesion. There is a tiny subcentimeter hypodense left renal cortical lesion which is indeterminate may represent hemorrhagic or proteinaceous cysts. There is a left renal cortical cyst measuring 3.1 cm which requires no follow-up. Bowel: The stomach and small bowel are normal without obstruction. The colon and appendix are normal. Peritoneum: There is no intraperitoneal free fluid or free air. No suspicious lymphadenopathy. Vasculature: Calcification of the aorta without aneurysm. Musculoskeletal: No suspicious osseous lesion or compression fracture. Pelvis: The uterus and adnexa are normal. The urinary bladder is normal. IMPRESSION: 1. A simple left renal cyst measuring 3.1 cm. No suspicious enhancing renal lesion. 2. No other acute abnormality in the abdomen or pelvis. Dictated by: Dictated on workstation # [id number]
== END ==
LOC: RAD 07:51
PROVIDERS: ATTEND Internal Medicine Nephrology
DX: N28.1 Cyst of kidney, acquired (principal)
CPT/HCPCS: 36415; 74178; 82565; 84520

== ENCOUNTER → 2021-08-01 | Outpatient (CLI) | payer BC | LOC: CARD 09:00 | PROVIDERS: ATTEND Internal Medicine Cardiovascular Disease | DX: I11.9 Hypertensive heart disease without heart failure (principal); I08.0 Rheumatic disorders of both mitral and aortic valves | CPT/HCPCS: 93306 ==

== ENCOUNTER → 2022-08-29 | Outpatient (CLI) | payer BC ==
--- NOTE | 2022-08-29 09:44 | Diagnostic Imaging Report ---
PROCEDURE: US left lower extremity venous. TECHNIQUE: Multiple Real-time grayscale images were obtained over the left lower extremity in various projections. Additional duplex Doppler and color Doppler images were also obtained. INDICATION: Left leg pain. FINDINGS: The veins of the left leg have good color filling and compressibility. There is phasic flow and a normal response to augmentation. IMPRESSION: Negative venous Doppler left leg. Dictated by: Dictated on workstation # [id number]
== END ==
LOC: RAD 08:55
PROVIDERS: ATTEND Nurse Practitioner Family
DX: Z01.89 Encounter for other specified special examinations (principal); Z76.0 Encounter for issue of repeat prescription; Z71.84 Encounter for health counseling related to travel; M79.89 Other specified soft tissue disorders; M79.605 Pain in left leg; F90.0 Attention-deficit hyperactivity disorder, predominantly inattentive type; I11.0 Hypertensive heart disease with heart failure; I50.9 Heart failure, unspecified; J30.89 Other allergic rhinitis; E78.49 Other hyperlipidemia; E66.8 Other obesity; E11.9 Type 2 diabetes mellitus without complications

== ENCOUNTER → 2023-01-07 | Outpatient (CLI) | payer BC ==
[~2023-01-07] MED LIST changes: +POTA-185 PO; -POTA10TA PO
--- NOTE | 2023-01-07 15:22 | Diagnostic Imaging Report ---
Indication: Routine screening. Comparison is made with prior mammograms from 03/24/2015 and 04/10/2013. 2-D and 3-D bilateral screening mammography was performed with CAD. Both breasts are heterogeneously dense, limiting the sensitivity of mammography. The parenchymal pattern is stable. No mass or malignant-appearing microcalcifications are identified. There are occasional benign calcifications. Axillae are unremarkable. IMPRESSION: BI-RADS Category 2 No mammographic features suspicious for malignancy are identified. ACR BI-RADS Category 2: Benign findings. Result letter will be mailed to the patient. Note: At least 10% of breast cancer is not imaged by mammography. Dictated by: Dictated on workstation # [id number]
== END ==
LOC: RAD 10:33
PROVIDERS: ATTEND Nurse Practitioner Family
DX: Z12.31 Encounter for screening mammogram for malignant neoplasm of breast (principal); Z00.00 Encounter for general adult medical examination without abnormal findings; Z12.4 Encounter for screening for malignant neoplasm of cervix; Z76.0 Encounter for issue of repeat prescription; E66.8 Other obesity; F90.0 Attention-deficit hyperactivity disorder, predominantly inattentive type; I11.0 Hypertensive heart disease with heart failure; I50.9 Heart failure, unspecified; J30.89 Other allergic rhinitis; E78.49 Other hyperlipidemia
CPT/HCPCS: 77063; 77067